=== PATIENT | male | born 1950 | race Caucasian/White ===

== ENCOUNTER → 2021-04-15 13:10 | Outpatient (BNVA) | payer MEDICARE, SELFPAY | PROVIDERS: Family Provider Nurse Practitioner Family; PCP Nurse Practitioner Family; Referring Provider Nurse Practitioner Family; Visit Provider Nurse Practitioner Family | DX: N40.1 Benign prostatic hyperplasia with lower urinary tract symptoms (principal) | CPT/HCPCS: 81003 ==

== ENCOUNTER → 2021-05-27 09:06 | Outpatient (BNVA) | payer MEDICARE, SELFPAY | PROVIDERS: Family Provider Nurse Practitioner Family; PCP Nurse Practitioner Family; Visit Provider Nurse Practitioner Family | DX: N40.1 Benign prostatic hyperplasia with lower urinary tract symptoms (principal) | CPT/HCPCS: 81003 ==

== ENCOUNTER → 2021-07-14 14:56 | Outpatient (BNVA) | payer MEDICARE, SELFPAY | PROVIDERS: Family Provider Nurse Practitioner Family; PCP Nurse Practitioner Family; Visit Provider Nurse Practitioner Family | DX: N40.1 Benign prostatic hyperplasia with lower urinary tract symptoms (principal) | CPT/HCPCS: 81003 ==

== ENCOUNTER 2023-02-28 10:13 | Outpatient (CLI) | payer MEDICARE, SELFPAY ==
--- NOTE | 2023-02-28 10:21 | CT_ITS ---
WS: [id number] LDCT LUNG CANCER SCREENING TECHNIQUE: Noncontrast CT of the chest with coronal and sagittal reformatted images. CLINICAL INFORMATION: HX OF TOBACCO USE COMPARISON: None. DLP: 134.41 mGy.cm DIvol: Mean CTDIvol: 3.10 (mGy) All CT scans at [facility] use at least one of these dose optimization techniques: automat ed exposure control; mA and/or kV adjustment per patient size (includes targeted exams where dose is matched to clinical indication); or iterative reconstruction. FINDINGS: A few tiny calcified granulomas. Tiny subpleural nodule RIGHT upper lobe measuring 3 mm. Sm all nodule along the RIGHT fissure measuring 5 mm. 4 mm noncalcified nodule LEFT lung apex and subpleural nodule LEFT lower lobe measuring 3 mm. Small n odule in the lingula. Pleural thickening LEFT upper lobe posteriorly with small hazy ground glass opacity measuring 9 mm. Normal caliber thoracic aorta. Aortic calcification. Coronary calcification. No mediastinal or hilar lymphadenopathy. Cholelithiasis. Small esophageal hiatal hernia. Adrenal glands are normal. Moderate thoracic kyphosis. Ankylosis thoracic spine. CT/CT lung screening [id number] IMPRESSION:Pleural thickening LEFT upper lobe posteriorly with small hazy groun d glass opacity measuring 9 mm. Recommend 6 month follow-up. LUNG-RADS: 3-Probably Benign FOLLOW UP: 6 Month LDCT
== END 2023-02-28 10:14 | disposition home or self-care (01) ==
LOC: RAD 10:16
PROVIDERS: PCP Family Medicine; Visit Provider Family Medicine
DX: Z12.2 Encounter for screening for malignant neoplasm of respiratory organs (principal); Z87.891 Personal history of nicotine dependence
CPT/HCPCS: 71271

== ENCOUNTER 2024-11-12 08:59 | Outpatient (CLI) | payer OTHER, SELFPAY ==
--- NOTE | 2024-11-12 09:08 | CT_ITS ---
WS: [id number] CT CHEST TECHNIQUE: Contrast enhanced CT of the chest with coronal and sagittal reformatted images. CLINICAL INFORMATION: LUNG NODULE COMPARISON: 02/28/2023 DLP: 642.[address] scans at [facility] use at least one of these dose optimization techniques: automated exposure control; mA and/or kV adjustment per patient size (includes targeted exams where dose is matched to clinical indication); or iterative reconstruction. FINDINGS: Previously described pleural thickening LEFT upper lobe with adjacent groundglass opacity appears progressed. Adjacent groundglass opacity measures 2.2 cm. Considering progression neoplasm is not excluded and recommend further evaluation with PET/CT. Few tiny calcified granulomas. Few tiny subcentimeter nodules in the RIGHT upper lobe, RIGHT perifissural nodule, LEFT lung apex and LEFT lower lobe are unchanged. Stable small nodule in the lingula. Normal caliber thoracic aorta. Aortic calcification. Coronary calcification. No mediastinal or hilar lymphadenopathy. Cholelithiasis. Small esophageal hiatal hernia. Adrenal glands are normal. Moderate thoracic kyphosis. Ankylosis thoracic spine. CT/CT chest w con* [id number] IMPRESSION: 1. Progressed groundglass opacity LEFT upper lobe with adjacent pleural thicke howard. Groundglass opacity measures 2.2 cm and recommend further evaluation with PET/CT. Neoplasm not excluded. 2. No other significant changes.
[2024-11-12] MEDS: iohexol 350 mg/mL 500 mL Btl (per mL) IV (09:23)
== END 2024-11-12 09:00 | disposition home or self-care (01) ==
LOC: RAD 09:01
PROVIDERS: PCP Family Medicine; Visit Provider Family Medicine
DX: R91.1 Solitary pulmonary nodule (principal); R91.8 Other nonspecific abnormal finding of lung field; J92.9 Pleural plaque without asbestos; I70.0 Atherosclerosis of aorta; I25.10 Atherosclerotic heart disease of native coronary artery without angina pectoris; K80.20 Calculus of gallbladder without cholecystitis without obstruction; K44.9 Diaphragmatic hernia without obstruction or gangrene; M40.294 Other kyphosis, thoracic region; M43.24 Fusion of spine, thoracic region
CPT/HCPCS: 71260

== ENCOUNTER 2025-05-23 11:05 | Outpatient (CLI) | payer MEDICARE, SELFPAY ==
--- NOTE | 2025-05-23 11:11 | PETR_ITS ---
PROCEDURE INFORMATION: Exam: PET/CT Whole Body Exam date and time: 05/23/2025 12:27 PM Age: 74 years old Clinical indication: Abnormal findings; Lung mass LABS AND CLINICAL REPORTS: Glucose: 114 mg/dl Treatment strategy for malignancy (PET staging): Initial Staging (PI) TECHNIQUE: Imaging protocol: Following at least four-hour fasting and following the injection of radiopharmaceutical, low dose CT images were obtained. Then, PET images were obtained. Attenuation corrected images were constructed using the CT scan. Fused images of PET and CT were reviewed. The standardized uptake values (SUV) reported below are maximum values within a region of interest, expressed in gm/ml. Exam includes the whole body. SUV normalization method: BodyWeight Radiopharmaceutical: 10.36 mCi F-18 FDG (Fluorodeoxyglucose), IV. Time of imaging post radiopharmaceutical administration: 49 minutes Injection site: RIGHT AC COMPARISON: CR XR chest 2V* [id number] 03/26/2025 10:46 AM, chest CT 11/12/2024, CT lung screening 02/28/2023 FINDINGS: Brain: Visualized brain has normal physiologic uptake. Pharynx: No abnormal uptake. Larynx: No abnormal uptake. Lungs, pleura and trachea: A patchy nodular density in the lateral left upper lobe with an overall measurement of 2.9 x 2.3 cm (previously 2.7 x 2.0 cm) in the axial plane on series 202, image 513 demonstrates an SUV max 2.2. A right upper lobe calcified granuloma is present. Heart: Normal physiologic uptake. Mediastinal space: No abnormal uptake. Liver: No abnormal uptake. Gallbladder and biliary ducts: No abnormal uptake. Stones in the gallbladder are identified. Pancreas: No abnormal uptake. Spleen: No abnormal uptake. Adrenal glands: No abnormal uptake. Kidneys and ureters: Normal physiologic uptake. Stomach and bowel: No abnormal uptake. Reproductive: Moderate prominence of the prostate gland is noted. Multifocal regions of uptake in the prostate gland are present, SUV max 4.6 on PET series 301, image 313. Vasculature: No abnormal uptake. Multifocal regions of atherosclerotic calcification are present. An inferior vena cava filter is present. Lymph nodes: No abnormal uptake. No lymphadenopathy in the head, neck, chest, abdomen, pelvis, and extremities. Skeleton: Degenerative changes of the spine are identified and are extensive at multiple levels, particularly in the anterior lumbar spine. Suture anchors in the left humeral greater tuberosity are present. Mild, likely degenerative inflammatory uptake in the region of the left acromioclavicular joint is present, SUV max 4.4 on PET image 90. Soft tissues: Mild, likely inflammatory uptake is noted in the soft tissues along the dorsal aspect of the right 2nd and 3rd toes associated with mild subcutaneous edema, SUV max 5.2 on PET image 642. Moderate subcutaneous edema in the right lower leg is identified. METRICS: Mediastinal blood pool: SUV max 3.3, SUV mean 2.5 Liver uptake: SUV max 4.3, SUV mean 3.2 PET/PET WB melanoma INITIAL [id number] IMPRESSION: 1. There has been an interval increase in size of a left upper lobe patchy nodular density, which demonstrates low-level uptake, which is less than mediastinal blood pool activity, favoring a benign infectious or inflammatory etiology. A malignant etiology is not entirely excluded. 2. Moderate prominence of the prostate gland, with multifocal regions of elevated uptake, which are indeterminate. Assessment of the prostate gland can be limited by F-18 FDG PET. Correlation with clinical findings/PSA levels recommended. 3. Right lower leg and forefoot subcutaneous edema is present, and there is mild, likely inflammatory uptake in the soft tissues along the dorsal aspect of the right 2nd and 3rd toes. 4. Additional nonurgent findings as detailed above.
== END 2025-05-23 11:06 | disposition home or self-care (01) ==
PROVIDERS: PCP Family Medicine; Visit Provider Family Medicine
DX: R91.8 Other nonspecific abnormal finding of lung field (principal); N40.0 Benign prostatic hyperplasia without lower urinary tract symptoms; K80.20 Calculus of gallbladder without cholecystitis without obstruction; Z95.828 Presence of other vascular implants and grafts; R93.7 Abnormal findings on diagnostic imaging of other parts of musculoskeletal system; Z96.698 Presence of other orthopedic joint implants; M79.89 Other specified soft tissue disorders; M25.812 Other specified joint disorders, left shoulder
CPT/HCPCS: 78816; A9552

== ENCOUNTER → 2025-06-19 13:12 | Outpatient (BNVA) | payer MEDICARE, SELFPAY | PROVIDERS: PCP Family Medicine; Referring Provider Family Medicine; Visit Provider Internal Medicine | DX: R91.1 Solitary pulmonary nodule (principal); Z87.891 Personal history of nicotine dependence | CPT/HCPCS: 99204; Q3014 ==